=== PATIENT | female | born 1970 | race Caucasian/White ===

== ENCOUNTER 2017-04-10 17:22 | Emergency (ER) | payer SELFPAY ==
[~2017-04-10 17:22] MED LIST: CARDIZEM30 MG PO; ELIQUIS5 MG PO; LASIX DPS80 MG PO; POTASSIUM PO; TENORMIN DPS50 MG PO
--- NOTE | 2017-04-12 13:34 | ER ---
ADMIT: 04/10/2017 RM/LOC: ER [facility] MR#: [id number] [address] [id number] [place], [place] [id number] Emergency Room Report SEX: F AGE: 47 : 1970 DATE: 04/10/2017 CHIEF COMPLAINT: Shortness of breath. HISTORY OF PRESENT ILLNESS: A 47-year-old female presents to the ED for evaluation of 6 hours' duration of persistent cough. The patient was recently discharged from the hospital with diagnoses of new-onset atrial fibrillation and CHF. She was seen and evaluated in the ER, admission with atrial fibrillation with RVR. She states she recovered unremarkably. Subsequently discharged on Eliquis, Lasix, and rate-controlling medicines. She states she has had on and off cough since last night. However, 6 hours prior to arrival, it has been quite persistent to the point where she is no longer able to breath. She admits to fevers, sweating. She has some chest pain that feels like heaviness and tightness. She states she feels nauseous and vomiting when she is coughing. She has a cough productive of phlegm, some lower leg swelling that is improving. PAST MEDICAL HISTORY: 1. Atrial fibrillation. 2. CHF. 3. Graves disease. MEDICATIONS: Include Eliquis. ALLERGIES: PENICILLIN. SOCIAL HISTORY: Denies smoke or alcohol use. 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 COURSE IN THE EMERGENCY ROOM: GENERAL: The patient is seen and examined, initially quite anxious, in mild amount of distress. She is, however, nontoxic. HEAD: Normocephalic and atraumatic. ENT: Pharyngeal erythema. There are no exudates. NECK: Soft and supple. No adenopathy. CHEST: She has wheezes bilaterally with decreased air movement throughout. HEART: Tachycardic with a regular rhythm. ABDOMEN: Soft and nontender. SKIN: Warm and dry. She is mildly diaphoretic. EXTREMITIES: She has bilateral pedal edema, 1+. NEURO: She is alert and oriented. Motor sensation is intact. While in the department, did recheck chest x-ray, shows the effusions are improving. There are no infiltrates. LABORATORY STUDIES: White count 10.5, hemoglobin 10.6, hematocrit 31.9. Chemistries; potassium 3.5, glucose 110. Cardiac enzymes are negative. While in the ER, she has received 1 mg of Ativan p.o. as well as DuoNeb ADMIT: 04/10/2017 RM/LOC: ER [facility] MR#: [id number] [address] [place] [id number] [place] [address] Emergency Room Report SEX: F AGE: 47 : 1970 breathing treatment. She was re-examined. She is now feeling much improved. She was given Tessalon 100 mg prior to discharge. IMPRESSION: 1. Cough. 2. Atrial fibrillation. 3. Congestive heart failure. DISPOSITION: The patient was discharged to home. Tessalon 100 mg p.o. t.i.d. as needed for cough. She is to continue her other home medications. Return with worsening signs or symptoms. Follow up as schedule. Discharged to home in stable condition. HUGO Hazel / Imtiaz Foster MD / santosh JOB #: [id number] CC: Matthew Chamberlain MD, Attending Physician UNKNOWN, Family Physician
== END 2017-04-10 19:10 | disposition home or self-care (01) ==
LOC: ER 17:22
DX: R05 Cough (principal); I48.91 Unspecified atrial fibrillation; I50.9 Heart failure, unspecified; E05.00 Thyrotoxicosis with diffuse goiter without thyrotoxic crisis or storm; Z79.899 Other long term (current) drug therapy; Z88.0 Allergy status to penicillin